=== PATIENT | female | born 1955 | race Two or more races ===

== ENCOUNTER 2023-08-01 16:51 | Emergency (ER) | payer MEDICARE, MEDICAID ==
[~2023-08-01] VITALS: Ht 160 cm; Wt 65.9 kg
[2023-08-01 16:59] VITALS: TEMP 98
[2023-08-01] MEDS ORDERED: AMLO1TAB12 PO (17:02)
[2023-08-01] MEDS: IBUPROFEN 600 MG TABLET PO ONE (17:46)
[2023-08-01] MEDS: LIDOCAINE 5% TRANSDERMAL PATCH TD ONE (17:46)
[2023-08-01] MEDS: ACETAMINOPHEN 325 MG TABLET PO ONE (17:46)
[2023-08-01] MEDS ORDERED: IBUP-1492 PO (17:59)
[2023-08-01] MEDS ORDERED: LIDO700A15 TP (17:59)
[2023-08-01] MEDS ORDERED: ACET-2247 PO (17:59)
[2023-08-01 18:06] VITALS: BP 153/82; PULSE 85; RESP 16
== END 2023-08-01 18:07 | disposition home or self-care (01) ==
LOC: EMS 17:08
DX: S29.012A Strain of muscle and tendon of back wall of thorax, initial encounter (principal); I10 Essential (primary) hypertension; X50.0XXA Overexertion from strenuous movement or load, initial encounter; Y93.89 Activity, other specified; Y92.89 Other specified places as the place of occurrence of the external cause; Y99.0 Civilian activity done for income or pay
CPT/HCPCS: 99284; Z7502; Z7610

== ENCOUNTER 2025-01-08 15:53 | Emergency (ER) | payer OTHER ==
[~2025-01-08] VITALS: Ht 162.6 cm; Wt 72.7 kg
[~2025-01-08 15:53] MED LIST: ACET-2247 PO; AMLO1TAB12 PO; IBUP-1492 PO; LIDO-57 TP
[2025-01-08 16:03] VITALS: TEMP 98.2
[2025-01-08 16:49] LABS: PLATELET COUNT (AUTO) 216 K/uL (150-450); RED BLOOD CELL COUNT(AUTO) 4.70 MIL/uL (4.00-5.20); RED CELL DISTRIBUTION WIDTH 13.4 % (11.5-14.5); WHITE BLOOD COUNT (AUTO) 6.4 K/uL (4.5-11.0)
[2025-01-08 16:53] LABS: CALCIUM, TOTAL 8.9 mg/dL (8.8-10.5); CREATININE 0.74 mg/dL (0.60-1.30); GLOMERULAR FILTR. RATE CALC > 60 mL/min (>60); GLUCOSE,RANDOM 107 mg/dL (70-110); SODIUM SERUM 141 mmol/L (136-145); UREA NITROGEN, BLOOD 19 mg/dL (7-18)
[2025-01-08 17:03] LABS: LACTIC ACID 0.8 mmol/L (0.4-2.0); TROPONIN I-HIGH SENSITIVITY 30 ng/L (<51)
[2025-01-08] MEDS ORDERED: ACET-66 PO (19:35)
[2025-01-08] MEDS ORDERED: DOXY-354 PO (19:35)
[2025-01-08] MEDS ORDERED: CEPH-558 PO (19:35)
[2025-01-08] MEDS: CefTRIAXone SODIUM 1 GM/VIAL IM ONE (19:50)
[2025-01-08] MEDS: LIDOCAINE/PF 1% 2 ML VIAL IM ONE (19:50)
[2025-01-08] MEDS: DOXYCYCLINE HYCLATE 100 MG TABLET PO ONE (19:51)
[2025-01-08 20:12] VITALS: BP 133/74; PULSE 72; RESP 16; O2SAT 98
== END 2025-01-08 20:13 | disposition home or self-care (01) ==
LOC: EMS 15:54
DX: L03.116 Cellulitis of left lower limb (principal); I10 Essential (primary) hypertension; E78.00 Pure hypercholesterolemia, unspecified; Z79.899 Other long term (current) drug therapy
CPT/HCPCS: 99285; 93971; 80048; 83605; 83690; 84484; 85025; 85379; 87040; 36415; 96372; J0696; J3490